=== PATIENT | female | born 1990 | race Caucasian/White ===

== ENCOUNTER 2017-04-11 08:00 | Outpatient (CLI) | payer OTHER | END 2017-04-11 08:01 | disposition home or self-care (01) | LOC: LAB.R 08:00 | PROVIDERS: ATTEND Obstetrics & Gynecology | DX: Z11.3 Encounter for screening for infections with a predominantly sexual mode of transmission (principal) | CPT/HCPCS: 87491; 87591 ==

== ENCOUNTER 2017-04-19 14:04 | Outpatient (CLI) | payer OTHER ==
[2017-04-19 14:37] LABS: BASOPHILS # (AUTO) 0.1 10^3/uL (0.0-0.1); BASOPHILS % (AUTO) 0.5 %; EOSINOPHILS # (AUTO) 0.2 10^3/uL (0.0-0.7); EOSINOPHILS % (AUTO) 1.7 %; HGB - HEMOGLOBIN 11.9 g/dL (12.0-16.0); LYMPHOCYTES # (AUTO) 1.7 10^3/uL (1.5-3.5); LYMPHOCYTES % (AUTO) 14.8 %; MEAN CORPUSCULAR HEMOGLOBIN 32.1 pg (27.0-31.0); MEAN CORPUSCULAR VOLUME 91.8 fL (81.0-99.0); MONOCYTES # (AUTO) 0.8 10^3/uL (0.0-1.0); MONOCYTES % (AUTO) 7.1 %; NEUTROPHILS # (AUTO) 8.8 10^3/uL (1.5-6.6); NEUTROPHILS % (AUTO) 75.9 %; PLT - PLATELET COUNT 274 10^3/uL (130-450); RED BLOOD COUNT 3.69 10^6/uL (4.20-5.40); RED CELL DISTRIBUTION WIDTH 12.2 % (12.0-15.0); WHITE BLOOD COUNT 11.6 x10^3/uL (4.8-10.8)
[2017-04-19 14:40] LABS: BILIRUBIN,URINE NEGATIVE (NEGATIVE); GLUCOSE, URINE (UA) NEGATIVE (NEGATIVE); KETONES,URINE (UA) NEGATIVE (NEGATIVE); LEUKOCYTE ESTERASE, URINE NEGATIVE (NEGATIVE); NITRITE,URINE NEGATIVE (NEGATIVE); OCCULT BLOOD,URINE SMALL (NEGATIVE); PH,URINE 6.5 PH (5.0-7.5); PROTEIN,URINE NEGATIVE (NEGATIVE); UROBILINOGEN,URINE 0.2 (NORMAL) E.U./dL (NORMAL)
[2017-04-19 14:50] LABS: CLARITY,URINE CLEAR (CLEAR)
[2017-04-19 14:56] LABS: BACTERIA,URINE None Seen /HPF (None Seen); RBC,URINE 0-5 /HPF (0-5); SQUAMOUS EPITHELIAL CELL,UR NONE SEEN (<= Few)
[2017-04-20 13:28] LABS: HEPATITIS B SURFACE ANTIGEN NON-REACTIVE (NON-REACTIVE)
[2017-04-20 15:22] LABS: HIV AG/AB 4TH GEN NON-REACTIVE (NON-REACTIVE)
== END 2017-04-19 14:05 | disposition home or self-care (01) ==
LOC: LAB 14:04
PROVIDERS: ATTEND Obstetrics & Gynecology
DX: Z34.81 Encounter for supervision of other normal pregnancy, first trimester (principal)
CPT/HCPCS: 36415; 81001; 81599; 85025; 86592; 86762; 86850; 86900; 86901; 87340; 87389

== ENCOUNTER 2017-06-26 12:33 | Outpatient (CLI) | payer OTHER ==
--- NOTE | 2017-06-26 18:47 | Ultrasound Report ---
OB ULTRASOUND: 06/26/2017 CLINICAL INDICATION: anatomy. TECHNIQUE: Transabdominal pelvic ultrasound performed. LAST MENSTRUAL PERIOD 02/08/2017 Clinical Age 19 weeks 5 days US Age 19 weeks 3 days EFW [place] 294 grams EFW% [place] -- Heart Rate 149 bpm EDC 11/15/2017 US EDC 11/17/2017 BPD [place] 19 weeks 3 days; Mean mm 44 HC [place] 19 weeks 0 days; Mean mm 162 AC [place] 19 weeks 5 days; Mean mm 144 FL [place] 19 weeks 2 days; Mean mm 29 Presentation variable/breech Placental Location posterior Cervical Length TA 4.0 cm Amniotic Fluid subjectively normal; MVP 3.6 cm FINDINGS: There is a single viable intrauterine gestation, in breech presentation. heart rate is 149 BPM. The placenta is posterior, without evidence of previa. Amniotic fluid volume is subjectively normal, with the deepest pocket of 3.6 cm. By size, the fetus measures 19 weeks 3 days (19 weeks 5 days by provided dating). ANATOMY: The following anatomic structures were visualized and appear normal: The intracranial contents, including the ventricles and posterior fossa; the lips and orbits; the spine; the heart, including 4 chamber view and left ventricular outflow tract, and diaphragm; the abdominal contents, including the stomach, the bilateral kidneys, and urinary bladder, as well as a normal 3 vessel cord insertion; 4 limbs. The right ventricular outflow tract was suboptimally visualized, secondary to positioning. No free fluid or adnexal lesion is appreciated. IMPRESSION 1. SINGLE VIABLE INTRAUTERINE GESTATION, WITH SIZE IN KEEPING WITH PROVIDED DATING. 2. SUBOPTIMAL VISUALIZATION OF RIGHT VENTRICULAR OUTFLOW TRACT, DUE TO POSITIONING. OTHERWISE, NORMAL ANATOMIC SURVEY. TD: 06/26/2017 18:46 REPORT REVISED: Originally signed 06/27/2017 @ 0844 Edited: Table added 06/30/2017 pedro MTDD
== END 2017-06-26 12:34 | disposition home or self-care (01) ==
LOC: DI 12:33
PROVIDERS: ATTEND Obstetrics & Gynecology
DX: Z34.82 Encounter for supervision of other normal pregnancy, second trimester (principal); Z3A.19 19 weeks gestation of pregnancy
CPT/HCPCS: 76811

== ENCOUNTER 2017-07-04 08:00 | Outpatient (CLI) | payer OTHER ==
[2017-07-04 19:15] LABS: BASOPHILS % (AUTO) 0.3 %; EOSINOPHILS # (AUTO) 0.2 10^3/uL (0.0-0.7); EOSINOPHILS % (AUTO) 1.7 %; HGB - HEMOGLOBIN 10.7 g/dL (12.0-16.0); LYMPHOCYTES % (AUTO) 15.9 %; MEAN CORPUSCULAR HEMOGLOBIN 31.3 pg (27.0-31.0); MEAN CORPUSCULAR HGB CONC 32.4 g/dL (32.0-36.0); MEAN CORPUSCULAR VOLUME 96.6 fL (81.0-99.0); MEAN PLATELET VOLUME 8.4 fL (7.9-10.8); MONOCYTES # (AUTO) 0.6 10^3/uL (0.0-1.0); MONOCYTES % (AUTO) 4.8 %; NEUTROPHILS # (AUTO) 9.6 10^3/uL (1.5-6.6); NEUTROPHILS % (AUTO) 77.3 %; PLT - PLATELET COUNT 274 10^3/uL (130-450); RED BLOOD COUNT 3.43 10^6/uL (4.20-5.40); RED CELL DISTRIBUTION WIDTH 13.1 % (12.0-15.0); WHITE BLOOD COUNT 12.4 x10^3/uL (4.8-10.8)
[2017-07-06 19:01] LABS: ANA SCREEN POSITIVE (NEGATIVE)
== END 2017-07-04 08:01 | disposition home or self-care (01) ==
LOC: LAB.N 08:00
PROVIDERS: ATTEND Obstetrics & Gynecology
DX: O36.8391 Maternal care for abnormalities of the fetal heart rate or rhythm, unspecified trimester, fetus 1 (principal)
CPT/HCPCS: 36415; 85025; 85651; 86038; 86039

== ENCOUNTER 2017-08-21 08:45 | Outpatient (CLI) | payer OTHER ==
[2017-08-21 10:02] LABS: MEAN CORPUSCULAR HEMOGLOBIN 33.5 pg (27.0-31.0); MEAN CORPUSCULAR HGB CONC 34.3 g/dL (32.0-36.0); MEAN CORPUSCULAR VOLUME 97.8 fL (81.0-99.0); MEAN PLATELET VOLUME 7.6 fL (7.9-10.8); RED BLOOD COUNT 3.29 10^6/uL (4.20-5.40); RED CELL DISTRIBUTION WIDTH 13.3 % (12.0-15.0); WHITE BLOOD COUNT 10.7 x10^3/uL (4.8-10.8)
== END 2017-08-21 08:46 | disposition home or self-care (01) ==
LOC: LAB 08:45
PROVIDERS: ATTEND Obstetrics & Gynecology
DX: Z34.90 Encounter for supervision of normal pregnancy, unspecified, unspecified trimester (principal)
CPT/HCPCS: 36415; 82950; 85027; 86850

== ENCOUNTER 2017-09-19 08:00 | Outpatient (CLI) | payer OTHER | END 2017-09-19 08:01 | LOC: LAB.R 08:00 | PROVIDERS: ATTEND Registered Nurse | DX: R82.99 Other abnormal findings in urine (principal) | CPT/HCPCS: 87086 ==

== ENCOUNTER 2017-10-17 08:00 | Outpatient (CLI) | payer OTHER | END 2017-10-17 23:59 | LOC: LAB.R 08:00 | PROVIDERS: ATTEND Registered Nurse | DX: Z34.83 Encounter for supervision of other normal pregnancy, third trimester (principal) | CPT/HCPCS: 87081 ==

== ENCOUNTER 2017-10-24 09:15 | Outpatient (CLI) | payer OTHER | END 2017-10-24 09:16 | disposition home or self-care (01) | LOC: LAB.R 09:15 | PROVIDERS: ATTEND Nurse Practitioner Obstetrics & Gynecology | DX: R82.99 Other abnormal findings in urine (principal) | CPT/HCPCS: 87086 ==

== ENCOUNTER 2017-11-10 08:05 | Inpatient (IN) | payer OTHER ==
[2017-11-10] MEDS ORDERED: fentaNYL 100 MCG/2 ML VIAL IVP PRN (08:24)
[2017-11-10] MEDS ORDERED: SODIUM CHLORIDE FLUSH 0.9% 10 ML SYRINGE IVP PRN (08:24)
[2017-11-10] MEDS ORDERED: ONDANSETRON 4 MG/2 ML VIAL IVP PRN ×2 (08:24→12:08)
[2017-11-10] MEDS ORDERED: OXYTOCIN/SODIUM CHLORIDE 500 ML IV ONE (08:48)
[2017-11-10] MEDS ORDERED: ACETAMINOPHEN 325 MG TABLET PO SCH (09:00)
[2017-11-10] MEDS ORDERED: miSOPROStol 100 MCG TABLET BC SCH (09:00)
[2017-11-10] MEDS ORDERED: LACTATED RINGERS 1,000 ML IV SCH (09:00)
--- NOTE | 2017-11-10 09:06 | HISTORY & PHYSICAL EXAMINATION ---
Admit History - Instructions [place]/Slash: -Left hand click circles element as positive or present. -Right hand click slashes element as negative or not present. - Visit Reason Visit Reason: Other - : 1 Parity: 0 Premature: 0 Ectopic: 0 : 0 Care: positive: [facility] Risk/History: positive: None Complications This : positive: None Smoking Status: Never smoker - Mother's Labs Mother's RH: positive: Positive GBS: positive: Group B Step Negative Rubella Status: positive: Non-immune - Other Maternal History Other Maternal History: HPI: This 27yo @ 39.2wks gestation by L=8.6wk U/S presents for augmentation of labor secondary to advanced dilation at term gestation. Upon evaluation she was noted to be 4-5/100/0, vertex with intact BOW. She was admitted to L&D for augmentation via AROM. AROM small amount of clear fluid. She denies contractions or vaginal bleeding. Reports +FM. Her has been uncomplicated. She has remained a patient of [facility] and her has remained complicated only by mild anemia at 28 weeks gestation. Dating criteria: 1.) LMP 02/08/2017 - agrees 2.) First ultrasound 04/11/2017 - agree 3.) Serial exams - agree OB History: G1: Current [employer] Hx: Menarche at age No hX STDs No Hx abnormal pap PMHx: No significant Medications: PNV; ferrous sulfate Allergies: NKDA Social Hx: Never smoker, No ETOH or IVDA. - [facility] Hx: None Family Hx: Alzheimer's disease - maternal grandmother; ovarian cancer - maternal aunt labs: GC/CT neg A pos, antibody neg [place] neg x 3 HIV neg Hgb 11.9; HCT 33.9 PLT 274 RPR non-reactive Rubella non-immune HepB non-reactive 28 week labs: Hgb 10.7 PLT 274 1 hour GTT 125 Tdap 08/23/17 Ultrasounds: 06/26/2017 FAS WNL. Size c/w LMP dating with suboptimal visualization of right ventricular outflow tract due to positioning. Assessment: 27yo @ 39.2wks gestation by L=8.6wk U/S Augmentation of labor secondary to advanced dilation GBS neg Rubella non-immune AROM small amount of clear fluid Plan: AROM and monitor x 4 hours Plan misoprostol 50mcg BC q 4 hours if labor stage has not advanced at that time Continuous monitoring [place]ante per maternal request Encouraged ambulation and frequent position changes Activity and nutrition as indicated Nitrous per maternal request Reevaluate in 4 hours or sooner PRN.
[2017-11-10 09:21] LABS: BASOPHILS % (AUTO) 0.3 %; EOSINOPHILS # (AUTO) 0.2 10^3/uL (0.0-0.7); EOSINOPHILS % (AUTO) 2.1 %; HGB - HEMOGLOBIN 12.8 g/dL (12.0-16.0); LYMPHOCYTES # (AUTO) 1.8 10^3/uL (1.5-3.5); LYMPHOCYTES % (AUTO) 18.1 %; MEAN CORPUSCULAR HEMOGLOBIN 33.2 pg (27.0-31.0); MEAN CORPUSCULAR HGB CONC 35.4 g/dL (32.0-36.0); MEAN CORPUSCULAR VOLUME 93.9 fL (81.0-99.0); MEAN PLATELET VOLUME 8.4 fL (7.9-10.8); MONOCYTES # (AUTO) 0.8 10^3/uL (0.0-1.0); MONOCYTES % (AUTO) 8.1 %; NEUTROPHILS # (AUTO) 7.1 10^3/uL (1.5-6.6); NEUTROPHILS % (AUTO) 71.4 %; PLT - PLATELET COUNT 237 10^3/uL (130-450); RED BLOOD COUNT 3.85 10^6/uL (4.20-5.40); RED CELL DISTRIBUTION WIDTH 13.4 % (12.0-15.0); WHITE BLOOD COUNT 9.9 x10^3/uL (4.8-10.8)
[2017-11-10] MEDS: SODIUM CHLORIDE FLUSH 0.9% 10 ML SYRINGE IVP SCH ×2 (09:27→18:03)
[2017-11-10] MEDS ORDERED: fent/BUPIV 2 MCG/0.125% 250 ML EP ONE (11:52)
--- NOTE | 2017-11-10 11:58 | PROVIDER PROGRESS NOTE ---
Labor Progress Note - Uterine Monitoring Uterine Monitoring Mode: positive: External toco Contraction Frequency (min/apart): 1-2 Contraction Intensity: positive: Moderate to strong Uterine Resting Tone: positive: Soft - Monitoring Monitor Mode: positive: External ultrasound Heart Rate Baseline: 130 Heart Rate Variability: positive: Moderate (6-25 bmp) Accelerations: positive: Present, 15x15 Decelerations: positive: None Strip Review: positive: Category I - Vaginal Exam Dilation (in cm): 6 Effacement (%): 100 Station: 0 Cervical Position: Midposition - Labor Progress Note Labor Progress Note/Additional Text: S: Pt breathing through contractions and requesting an epidural for pain management. She declines nitrous oxide. Was in the jacuzzi for a short time which moderately improved her discomfort. Nausea with two episodes of vomiting. Mom and supportive at the bedside. O: FHR baseline 130s, moderate variability, + accels, no decels. Contractions palpate moderate to firm every 2-3 minutes lasting 60-110 seconds with soft resting tone. SVE 6/100/0, midposition, vertex A: 27yo @ 39.2 wks gestation by L=8.6wk U/S GBS neg AROM x 4 hours P: Continuos monitoring Epidural per maternal request Initiate pitocin per protocol if contractions fall below every 4 minutes Anticipate spontaneous vaginal delivery. Reevaluate in 4 hours or sooner PRN.
[2017-11-10] MEDS ORDERED: LACTATED RINGERS 500 ML IV ONE (12:08)
[2017-11-10] MEDS ORDERED: NALOXONE 0.4 MG/ML VIAL IVP PRN (12:08)
[2017-11-10] MEDS ORDERED: NALBUPHINE 10 MG/ML AMP IVP PRN (12:08)
[2017-11-10] MEDS ORDERED: fent/BUPIV 2 MCG/0.125% 250 ML EP PRN (12:08)
[2017-11-10] MEDS ORDERED: ePHEDrine 50 MG/ML VIAL IVP PRN (12:08)
[2017-11-10] MEDS: OXYTOCIN/SODIUM CHLORIDE 500 ML IV SCH (15:03)
[2017-11-10] MEDS ORDERED: WITCH HAZEL/GLYCERIN 1 EACH MED..PAD TOP PRN (15:27)
[2017-11-10] MEDS ORDERED: HYDROCORTISONE/PRAMOXINE 10 GM PR PRN (15:27)
[2017-11-10] MEDS ORDERED: OXYTOCIN/SODIUM CHLORIDE 250 ML IV ONE (15:27)
--- NOTE | 2017-11-10 15:39 | DELIVERY NOTE ---
Delivery Note - Labor Labor: positive: Augmented by ARM - Infant Delivery Method Delivery Method: positive: Spontaneous vaginal delivery - Presentation Presentation: positive: Vertex, MARGY - left occiput anterior - Nuchal Cord Nuchal Cord: positive: None - Amniotic Fluid Description Amniotic Fluid Description: positive: Clear - Episiotomy Type Episiotomy Type: positive: None - Laceration Laceration: positive: 2nd degree - Suture Suture Type: positive: Vicryl Suture Size: positive: 2-0 - Delivery Outcome Delivery Outcome: positive: Livebirth - [place] : positive: Stimulated, Warmed, [place] used sex: positive: Female - Cord Cord: positive: 3 vessels - Placenta Placenta: positive: Intact, Spontaneous - Estimated Blood Loss Estimated Blood Loss (in cc): 250 - Post Delivery Events Post Delivery Events: positive: No post delivery events - Delivery Comments (Free Text/Narrative) Delivery Comments (Free Text/Narrative): Labor: This 27yo @ 39.2wks gestation by L=8.6wk U/S presented at 0800 on 11/10/2017 for augmentation of labor. Upon arrival her cervix was noted to be 5/100/0 and vertex. FHR pattern demonstrated a baseline 130 in a Category I tracing throughout labor. AROM small amount of clear fluid at 0830. Epidural placed upon maternal request. Normal labor course. Patient progressed to c/c/+1 with increased vaginal pressure and desire to push at 1322. : Normal of viable female named Maryann. No nuchal. 's 9 and 9 at 1 and 5 min respectively at 1453 on 11/10/2017. The umbilical cord was allowed to stop pulsating doubly clamped and cut by FOB. Cord blood was obtained. Placenta delivered spontaneously and intact at 1458. 3VC. Pitocin delivered via IV for hemostasis. EBL 250mL. Fourth stage: Uterine fundus firm and there is no excessive bleeding. The perineum, vagina, and cervix were inspected and found to have 2nd vaginal laceration with intact perineum. Repair performed with 2-[address]-1 needle in standard fashion under sterile conditions. Vaginal and rectal examination following repair was performed. Tissues well approximated. initiated. Family bonding well. Both mother and baby are in stable condition.
[2017-11-10] MEDS: IBUPROFEN 800 MG TABLET PO SCH ×2 (15:58→23:50)
[2017-11-10] MEDS: ACETAMINOPHEN 325 MG TABLET PO SCH ×2 (18:04→20:25)
[2017-11-10] MEDS: DOCUSATE SODIUM 100 MG CAPSULE PO SCH (20:25)
[2017-11-11] MEDS: ACETAMINOPHEN 325 MG TABLET PO SCH ×3 (02:11→15:04)
[2017-11-11] MEDS: IBUPROFEN 800 MG TABLET PO SCH ×3 (06:10→18:32)
[2017-11-11] MEDS: DOCUSATE SODIUM 100 MG CAPSULE PO SCH (09:04)
--- NOTE | 2017-11-11 10:24 | Discharge Plan ---
Discharge Plan Disposition: 01 Home, Self Care Condition: Good Diet: Regular Activity Restrictions: No Restrictions Shower Restrictions: No Driving Restrictions: No Weight Bearing: Full Weight No Smoking: If you smoke, Please STOP! Call for help. Follow-up with: Kassandra Maradiaga CNM, ARNP [Provider Admit Priv/Credential] -
--- NOTE | 2017-11-11 10:35 | PROVIDER PROGRESS NOTE ---
Subjective - Subjective Subjective: FINAL PROGRESS NOTE: S: Bonding well with baby. without difficulty. pain well controlled with ibuprofen. Mom supportive at the bedside. She has a strong desire to go home today at 24 hours and feels very well supported at home. O: BP 136/68, HR 74, T37.0, RR 16 Heart RRR w/o M/G/R, lungs CTAB, abdomen soft and nontender with fundus firm at U-1. Perineum intact. Repair with mild edema. Bilateral LE's trace edema. A: 27yo -->P1 s/p TSVD of viable female PPD #1 P: Discharge home today on day #1. Will hold discharge if baby is not discharged home today. Reviewed care and warning signs/when to present. She plans to f/u with myself at [facility] in 1 week for visit and then in 3 weeks for routine visit. She verbalized understanding and agrees to above plan. She denies further questions or concerns today. Return in 1 week or sooner PRN. Objective - Vital Signs/Intake & Output Vital Signs: Vital Signs x48h Temp Pulse Resp BP BP Pulse Ox 11/11/17 08:47 37.0 C 74 16 136/68 H 100 11/11/17 03:37 37.0 C 74 16 114/64 99 Intake & Output: Intake & Output 11/08/17 11/09/17 11/10/17 11/11/17 23:59 23:59 23:59 23:59 Intake Total 1500 Output Total 1000 Balance 500 - Lab Results Fish Bones: 11/10/17 09:05
[2017-11-11] MEDS: SODIUM CHLORIDE FLUSH 0.9% 10 ML SYRINGE IVP SCH (11:39)
[2017-11-11] MEDS: OXYTOCIN/SODIUM CHLORIDE 500 ML IV SCH (13:46)
[2017-11-11 18:36] VITALS: BP 130/76
--- NOTE | 2017-11-11 19:30 | Labor Flowsheet ---
Labor Flowsheet Datetime Report Generated by CPN: 11/11/2017 19:30 Datetime: 11/11/2017 18:35 VITAL SIGNS NBP Sys/Maylin/Mean (mmHg): 130 : 76 : 89 Pulse: 75 LaborFlag: Labor Datetime: 11/10/2017 20:19 SpO2 (%): 99 Datetime: 11/10/2017 14:58 Temperature (C): 37.1 Datetime: 11/10/2017 14:45 UTERINE ACTIVITY Monitor Mode: External Frequency (min): 1-2 Quality: Strong Duration (sec): 60-80 Pattern: Normal: <= 5 Contractions in 10 Minutes Resting Tone (Palpate): Relaxed ASSESSMENT A Monitor Mode: Telemetry FHR Baseline Rate : 130 Variability: Minimal - Undetectable to <=5 bpm Accelerations: accelerations during pushing likely maternal Decelerations: Variable (Annotations: x1, down to 90s) Actions for Decelerations: Provider Notified Category: Category II Datetime: 11/10/2017 13:33 COMMUNICATION Communication: Provider at Bedside Provider Notified (Name): joanne Datetime: 11/10/2017 13:30 Respirations: 22 Datetime: 11/10/2017 13:19 Communication Comments: pt complete Datetime: 11/10/2017 13:16 VAGINAL EXAM Dilatation (cm): 10.0 Effacement (%): 100 Station: 1 Exam by: EM Datetime: 11/10/2017 12:42 Monitor Interventions for FHR: Ultrasound Adjusted Datetime: 11/10/2017 12:40 Anesthesia Level Check: T9 Datetime: 11/10/2017 12:29 Stage of : Labor Datetime: 11/10/2017 12:28 Monitor Interventions for UA: Baggs Adjusted Datetime: 11/10/2017 12:12 Comments: maternal HR during ctx d/t pt position Epidural Procedure: Loading Dose Datetime: 11/10/2017 12:07 Anesthesia Comments: local Datetime: 11/10/2017 11:58 PROCEDURE TIME OUT Procedure Verify: Correct Patient Identity; Correct Side and Site are Marked; Accurate Procedure Co nsent Form; Agreement on Procedure to be Done; Correct Patient Position; Relevant Images and Results are Properly Labeled and Displayed; Addressed Need to Administer Antibiotics or Fluids for Irrigation ; Safety Precautions Based on Patient History or Medication Use Datetime: 11/10/2017 11:53 ANESTHESIA Epidural Positioning: Sitting Datetime: 11/10/2017 11:40 Patient Care Comments: vomitting Datetime: 11/10/2017 11:38 PATIENT CARE Patient Position/Activity: Standing Datetime: 11/10/2017 11:10 Pain Assessment Comments: Pt states feeling the urge to poop, Datetime: 11/10/2017 10:34 PAIN Pain Presence: Intermittent Pain Type: Cramping; Ache Pain Location: Abdomen; Perineum; Right Leg; Left Leg Pain Relief Measures: Comfort Measures Pain Coping: Talking Through Contractions Comfort Measures: Family Support Datetime: 11/10/2017 09:56 I/O Interventions: Up to BR
--- NOTE | 2017-11-13 09:34 | DISCHARGE SUMMARY ---
Physician: MERON Markham DATE OF ADMISSION: 11/10/2017 DATE OF DISCHARGE: 11/11/2017 DIAGNOSES ON ADMISSION 1. A 27-year-old G1, P0-0-0-0, at 39 and 2 weeks' gestation by an 8-week 6-day ultrasound. 2. Augmentation of labor secondary to advanced cervical dilation at term gestation. 3. Group B streptococcus negative. DIAGNOSES ON DISCHARGE 1. A 27-year-old G1, P1-0-0-1, status post spontaneous vaginal delivery on 09/2017. 2. Normal recovery. BRIEF HISTORY: She is a patient of [facility] who presented on 11/10/2017, for augmentation of labor. The patient was noted to be 4-5 cm, 100% effaced, and 0 station with intact membranes. She was admitted to Labor and Delivery for augmentation via an artificial rupture of membranes. Her has been uncomplicated, with the exception of mild anemia at 28 weeks ' gestation which responded well to iron therapy. She spontaneously delivered a viable female infant named Connie. Apgars were 9 and 9 at one and five minutes respectively. EBL 250 mL. The perineum, vagina and cervix were inspected and found to have a second-degree vaginal laceration with intact perineum. Repair was performed with 2-[address]-1 needle in a standard fashion under sterile conditions. She has been doing well in the course. She is ambulating and tolerating a regular diet. She is urinating without difficulty and her lochia is normal. Her pain is well controlled with oral medications. She will be discharged home today on day #1, with instructions to take ibuprofen [id number] for pain management. She intends to follow up with myself at [facility] in 1 week for a support visit, followed by a 3-week routine visit. She has been given precautions to call if she has any worsening fevers, chills, abdominal pain, increased bleeding or foul smelling vaginal lochia. TD: 11/13/2017 08:32 RASHARD
== END 2017-11-11 19:20 | disposition home or self-care (01) | DRG 769 ==
LOC: WFO 08:05 → FBP 08:07 → WFO 08:23 → FBP 08:24
PROVIDERS: ADMIT Nurse Practitioner Obstetrics & Gynecology; ATTEND Nurse Practitioner Obstetrics & Gynecology
PROC: 10E0XZZ Delivery of Products of Conception, External Approach (ICD-10-PCS; principal; 2017-11-10)
PROC: 0KQM0ZZ Repair Perineum Muscle, Open Approach (ICD-10-PCS; 2017-11-10)
PROC: 10907ZC Drainage of Amniotic Fluid, Therapeutic from Products of Conception, Via Natural or Artificial Opening (ICD-10-PCS; 2017-11-10)
DX: O70.1 Second degree perineal laceration during delivery (principal); Z79.899 Other long term (current) drug therapy; Z86.2 Personal history of diseases of the blood and blood-forming organs and certain disorders involving the immune mechanism
CPT/HCPCS: 85025

== ENCOUNTER 2017-11-20 13:56 | Outpatient (CLI) | payer OTHER ==
[2017-11-20 14:24] LABS: HGB - HEMOGLOBIN 13.6 g/dL (12.0-16.0); MEAN CORPUSCULAR HEMOGLOBIN 32.9 pg (27.0-31.0); MEAN CORPUSCULAR HGB CONC 34.4 g/dL (32.0-36.0); MEAN CORPUSCULAR VOLUME 95.8 fL (81.0-99.0); MEAN PLATELET VOLUME 7.1 fL (7.9-10.8); RED BLOOD COUNT 4.14 10^6/uL (4.20-5.40); RED CELL DISTRIBUTION WIDTH 13.3 % (12.0-15.0); WHITE BLOOD COUNT 9.5 x10^3/uL (4.8-10.8)
[2017-11-20 14:38] LABS: ALBUMIN 3.6 g/dL (3.2-5.5); BILIRUBIN,TOTAL 0.3 mg/dL (0.2-1.0); CALCIUM 9.6 mg/dL (8.5-10.3); CREATININE 0.8 mg/dL (0.4-1.0); TOTAL PROTEIN 7.1 g/dL (6.7-8.2); URIC ACID 6.2 mg/dL (2.6-7.2)
[2017-11-20 16:06] LABS: CREATININE,URINE 35.2 mg/dL
[2017-11-20 16:09] LABS: TOTAL PROTEIN,URINE TIMED < 6 mg/dL
== END 2017-11-20 13:57 | disposition home or self-care (01) ==
LOC: LAB 13:56
PROVIDERS: ATTEND Nurse Practitioner Obstetrics & Gynecology
DX: O13.9 Gestational [pregnancy-induced] hypertension without significant proteinuria, unspecified trimester (principal)
CPT/HCPCS: 36415; 80053; 82570; 84156; 84550; 85027